=== PATIENT | female | born 1955 | race Caucasian/White ===

== ENCOUNTER 2018-03-19 14:53 | Emergency (ER) | payer BC, OTHER ==
--- NOTE | 2018-03-19 14:57 | Emergency Department Record ---
History of Present Illness - General Stated complaint: UTI Time Seen by Provider: 03/19/18 14:57 Source: Patient, Family Mode of Arrival: Ambulatory Limitations: No limitations - History of Present Illness Initial comments: 62 yo female presents with 4 days of urinary frequency. Mild suprapubic discomfort. No fevers, chills, nausea or vomiting. No diarrhea. Mild intermittent back pain that is gone currently. No rash. No vaginal bleeding or discharge. She tried cranberry juice for without improvement. MD Complaint: Dysuria -: Days(s) (4) Location: Suprapubic Radiation: Suprapubic Severity: Moderate Quality: Aching Consistency: Constant Improves with: None Worsens with: Urination - Related Data Home Medications Medication Instructions Recorded Confirmed Last Taken Diazepam [Valium] 5 mg PO ASDIR 03/19/18 03/19/18 Unknown Previous Rx's Medication Instructions Recorded Nitrofurantoin Monohyd/M-Cryst 100 mg PO BID #14 capsule 03/19/18 [Macrobid 100 mg Capsule] Allergies Allergy/AdvReac Type Severity Reaction Status Date / Time morphine Allergy Intermediate HIVES Verified 03/19/18 14:58 Review of Systems Constitutional: Denies: Chills, Fever, Malaise, Weakness Eyes: Denies: Eye discharge ENT: Denies: Congestion, Throat pain Respiratory: Denies: Cough, Dyspnea, Hemoptysis, Wheezes Cardiovascular: Denies: Chest pain, Syncope Endocrine: Denies: Fatigue Gastrointestinal: Reports: As per HPI, Abdominal pain. Denies: Diarrhea, Nausea , Vomiting Genitourinary: Reports: Dysuria, Frequency. Denies: Abnormal menses, Discharge , Hematuria, Incontinence, Retention Musculoskeletal: Denies: Arthralgia, Back pain, Neck pain Skin: Denies: Bruising, Change in color, Rash Neurological: Denies: Headache, Numbness, Weakness Psychiatric: Denies: Anxiety Hematological/Lymphatic: Denies: Blood Clots, Easy bleeding, Easy bruising Past Medical History - SOCIAL HISTORY Smoking Status: Former smoker - RESPIRATORY Hx Respiratory Disorders: No - CARDIOVASCULAR Hx Cardio Disorders: No - NEURO Hx Neuro Disorders: No - GI Hx GI Disorders: Yes Hx Reflux: Yes Hx Hiatal Hernia: Yes Hx Ulcer: Yes (h pylori) - Hx Genitourinary Disorders: No - ENDOCRINE Hx Endocrine Disorders: No - MUSCULOSKELETAL Hx Musculoskeletal Disorders: No - PSYCH Hx Psych Problems: No - HEMATOLOGY/ONCOLOGY Hx Hematology/Oncology Disorders: No Family Medical History Hx Cancer: Father *Cancer Comment: kidney ca Hx Heart Disease: Father *Heart Comment: father-pacemaker. mother-murmur, neck anurysm Physical Exam - General General Appearance: Alert, Oriented x3, Cooperative, No acute distress Limitations: No limitations - Head Head exam: Normal inspection - Eye Eye exam: Normal appearance. negative: Conjunctival injection - ENT ENT exam: Normal exam, Mucous membranes moist Ear exam: Normal external inspection Nasal Exam: Normal inspection Mouth exam: Normal external inspection - Neck Neck exam: Normal inspection - Respiratory Respiratory exam: Normal lung sounds bilaterally. negative: Respiratory distress - Cardiovascular Cardiovascular Exam: Regular rate, Normal rhythm, Normal heart sounds - GI/Abdominal GI/Abdominal exam: Soft, Tenderness (minimal suprapubic tenderness) - Rectal Rectal exam: Deferred - exam: Deferred - Extremities Extremities exam: Normal inspection, Full ROM, Normal capillary refill. negative: Tenderness - Back Back exam: Denies: CVA tenderness (R), CVA tenderness (L), Paraspinal tenderness , Tenderness - Neurological Neurological exam: Alert, Oriented X3 - Psychiatric Psychiatric exam: Normal affect, Normal mood - Skin Skin exam: Dry, Intact, Normal color, Warm Course - Reevaluation(s) Reevaluation #1: 03/19/18 15:32 The UA is consistent with a UTI Macrobid prescribed Disposition Disposition: Discharge Clinical Impression: Urinary tract infection Disposition: Home, Self-Care Condition: (1) Good Instructions: Urinary Tract Infection in Women (ED) Additional Instructions: Stay well hydrated Start the antibiotics as directed Return or be seen if not improved in the next week A culture will be sent that will result in a week Prescriptions: Nitrofurantoin Monohyd/M-Cryst [Macrobid 100 mg Capsule] 100 mg PO BID #14 capsule Forms: Patient Portal Access Time of Disposition: 15:34 Quality - Quality Measures Quality Measures: N/A - Blood Pressure Screening Does Patient Have Any of the Following: No Blood Pressure Classification: Pre-Hypertensive BP Reading Systolic Measurement: 146 Diastolic Measurement: 81 Screening for High Blood Pressure: < Pre-Hypertensive BP, F/U Documented > [ G8950] Pre-Hypertensive Follow-up Interventions: Referral to alternative/primary care provider.
[2018-03-19 15:21] LABS: URINE APPEARANCE CLEAR; URINE BILIRUBIN NEGATIVE (NEGATIVE); URINE BLOOD SMALL (NEGATIVE); URINE COLOR YELLOW; URINE GLUCOSE (UA) NEGATIVE (NEGATIVE); URINE KETONE NEGATIVE (NEGATIVE); URINE LEUKOCYTE ESTERASE SMALL (NEGATIVE); URINE NITRITE NEGATIVE (NEGATIVE); URINE PROTEIN NEGATIVE (NEGATIVE); URINE UROBILINOGEN 0.2 E.U./dL (0.20 - 1.00)
[2018-03-19 15:30] LABS: URINE BACTERIA FEW; URINE RBC 0 - 2 (NONE SEEN); URINE WBC 21 - 35 (0-2/hpf)
[2018-03-19] MEDS ORDERED: NITROFURANTOIN MONO 100 MG CAPSULE PO ONE (15:34)
== END 2018-03-19 15:46 | disposition home or self-care (01) ==
LOC: ER 14:53
DX: N39.0 Urinary tract infection, site not specified (principal); Z87.891 Personal history of nicotine dependence
CPT/HCPCS: 81001; 99282

== ENCOUNTER 2019-05-02 00:50 | Emergency (ER) | payer OTHER ==
[2019-05-02] MEDS ORDERED: ONDANSETRON HCL IV 4 MG/2 ML VIAL IVP ONE (00:51)
[2019-05-02] MEDS ORDERED: HYOSCYAMINE SULFATE ODT 0.125 MG TAB.SUBL SL ONE (00:56)
--- NOTE | 2019-05-02 00:57 | Emergency Department Record ---
History of Present Illness - General Chief complaint: Nausea, Vomiting, Diarrhea Time Seen by Provider: 05/02/19 00:50 Source: Patient, EMS Mode of Arrival: EMS Limitations: No limitations - History of Present Illness Initial comments: 63 yo female presents to ED for evaluation of nausea, vomiting, and loose stools for the past 4 hours. Patient denies fevers, chills, or abdominal pain symptoms, patient denies recent antibiotic use. Patient called EMS as she reports she was too dehydrated to get off the floor. Patient reports a history of gastritis. Patient denies urinary symptoms as well. MD complaint: Diarrhea, Nausea, Vomiting Onset/Timin -: Hour(s) Description of Diarrhea: Green, Water Associated Abdominal Pain: No Severity: Mild Quality: Cramping Consistency: Constant Improves with: None Worsens with: None Associated Symptoms: Denies other symptoms - Related Data Previous Rx's Medication Instructions Recorded Hyoscyamine Sulfate [Levsin-Sl] 0.25 mg SL Q8H PRN #30 tab.subl 05/02/19 Ondansetron [Zofran Odt] 4 mg PO Q8H PRN #15 tab.rapdis 05/02/19 Allergies Allergy/AdvReac Type Severity Reaction Status Date / Time morphine Allergy Intermediate HIVES Verified 05/02/19 01:44 Review of Systems Constitutional: Denies: Chills, Fever, Malaise, Night sweats Eyes: Denies: Eye discharge, Eye pain ENT: Denies: Congestion, Ear pain, Epistaxis Respiratory: Denies: Cough, Dyspnea Cardiovascular: Denies: Chest pain, Dyspnea on exertion Endocrine: Denies: Fatigue, Heat or cold intolerance Gastrointestinal: Reports: Diarrhea, Nausea, Vomiting. Denies: Constipation Genitourinary: Denies: Incontinence, Retention Musculoskeletal: Denies: Arthralgia, Back pain Skin: Denies: Bruising, Change in color Neurological: Denies: Abnormal gait, Confusion, Headache, Seizure Psychiatric: Denies: Anxiety Hematological/Lymphatic: Denies: Anemia, Blood Clots Past Medical History - SOCIAL HISTORY Smoking Status: Former smoker - RESPIRATORY Hx Respiratory Disorders: No - CARDIOVASCULAR Hx Cardio Disorders: No - NEURO Hx Neuro Disorders: No - GI Hx GI Disorders: Yes Hx Reflux: Yes Hx Hiatal Hernia: Yes Hx Ulcer: Yes (h pylori) - Hx Genitourinary Disorders: No - ENDOCRINE Hx Endocrine Disorders: No - MUSCULOSKELETAL Hx Musculoskeletal Disorders: No - PSYCH Hx Psych Problems: No - HEMATOLOGY/ONCOLOGY Hx Hematology/Oncology Disorders: No Family Medical History Hx Cancer: Father *Cancer Comment: kidney ca Hx Heart Disease: Father *Heart Comment: father-pacemaker. mother-murmur, neck anurysm Physical Exam - General General Appearance: Alert, Oriented x3, Cooperative, Moderate distress, Other Limitations: No limitations - Head Head exam: Atraumatic, Normocephalic, Normal inspection Head exam detail: negative: Abrasion, Contusion, Rdz's sign, General tenderness, Hematoma, Laceration - Eye Eye exam: Normal appearance. negative: Conjunctival injection, Periorbital swelling, Periorbital tenderness, Scleral icterus - ENT Ear exam: negative: Auricular hematoma, Auricular trauma Nasal Exam: negative: Active bleeding, Discharge, Dried blood, Foreign body Mouth exam: negative: Drooling, Laceration, Muffled voice, Tongue elevation - Neck Neck exam: Normal inspection. negative: Meningismus, Tenderness - Respiratory Respiratory exam: Normal lung sounds bilaterally. negative: Rales, Respiratory distress, Rhonchi, Stridor - Cardiovascular Cardiovascular Exam: Regular rate, Normal rhythm, Normal heart sounds - GI/Abdominal GI/Abdominal exam: Soft. negative: Rebound, Rigid, Tenderness - Rectal Rectal exam: Deferred - exam: Deferred - Extremities Extremities exam: Normal inspection. negative: Pedal edema, Tenderness - Back Back exam: Denies: CVA tenderness (R), CVA tenderness (L) - Neurological Neurological exam: Alert, Normal gait, Oriented X3 - Psychiatric Psychiatric exam: Normal affect, Normal mood - Skin Skin exam: Normal color. negative: Abrasion Type of lesion: negative: abrasion Course - Reevaluation(s) Reevaluation #1: 05/02/19 03:16 Laboratory studies were reviewed and appear grossly unremarkable for an acute process except for the following: WBC 12.3 with 24% bands Reevaluation #2: 05/02/19 03:23 Patient was reassessed, reports that she is feeling much better. Abdominal pain/cramping much improved, loose stools are improved as well. Patient reports that she is feeling well enough to be discharged home with medication for nausea and cramping as discussed. Patient appears stable for discharge at this time. Medical Decision Making - Lab Data Result diagrams: 05/02/19 02:26 05/02/19 02:26 Disposition Disposition: Discharge Clinical Impression: Nausea vomiting and diarrhea Disposition: Home, Self-Care Condition: (2) Stable Instructions: Acute Nausea and Vomiting (ED) Additional Instructions: Return to ED if your symptoms worsen or if you have any concerns. Zofran, Levsin as directed. Follow-up with your family doctor in 3-5 days as directed. Prescriptions: Hyoscyamine Sulfate [Levsin-Sl] 0.25 mg SL Q8H PRN #30 tab.subl PRN Reason: Abdominal Pain Ondansetron [Zofran Odt] 4 mg PO Q8H PRN #15 tab.rapdis PRN Reason: Nausea/Vomiting Forms: Patient Portal Access Time of Disposition: 03:24 Quality - Quality Measures Quality Measures: N/A - Blood Pressure Screening Does Patient Have Any of the Following: No Blood Pressure Classification: Pre-Hypertensive BP Reading Systolic Measurement: 124 Diastolic Measurement: 73 Screening for High Blood Pressure: < Pre-Hypertensive BP, F/U Documented > [G8950] Pre-Hypertensive Follow-up Interventions: Referral to alternative/primary care provider.
[2019-05-02] MEDS ORDERED: LOPERAMIDE 2 MG CAPSULE PO ONE (01:00)
[2019-05-02] MEDS ORDERED: 0.9 % SODIUM CHLORIDE 1000ML 2,000 ML IV SCH (01:00)
[2019-05-02 01:55] LABS: ROTOVIRUS NOT DETECTED (NOT DETECT)
[2019-05-02 02:33] LABS: ABSOLUTE NEUTROPHIL COUNT 10.23; HEMATOCRIT 46.2 % (35.0-47.0); HEMOGLOBIN 15.2 gm/dl (11.6-16.0); MEAN CELL VOLUME 89.9 fl (81-97); MEAN CORPUSCULAR HEMOGLOBIN 29.6 pg (27-33); MEAN CORPUSCULAR HGB CONC 32.9 g/dl (32-36); MEAN PLATELET VOLUME 9.4 fl (7.4-10.4); PLATELET COUNT 233 K/uL (130-400); RED BLOOD COUNT 5.14 M/uL (3.80-5.40); RED CELL DISTRIBUTION WIDTH 13.8 % (11.5-14.5); WHITE BLOOD COUNT W/O DIFF 12.3 K/uL (4.2-12.2)
[2019-05-02 02:37] LABS: MOLECULAR C DIFF TOXIN SCREEN NOT DETECTED (NOT DETECT)
[2019-05-02 02:42] LABS: BLOOD UREA NITROGEN 29 mg/dL (8-23); CREATININE 0.8 mg/dL (0.5-0.9); EST GLOMERULAR FILTRATION RATE > 60 mL/min
[2019-05-02 02:43] LABS: LIPASE 66 U/L (13-60); TOTAL PROTEIN 6.7 g/dL (6.6-8.7)
[2019-05-02 02:45] LABS: GLUCOSE,RANDOM 115 mg/dL (74-109)
[2019-05-02 02:48] LABS: ALB/GLOB RATIO 1.6 (1.1-1.8); ALBUMIN 4.1 g/dL (4.0-5.0); ALKALINE PHOSPHATASE 103 U/L (35-104); ALT/SGPT 22 U/L (<33); AST/SGOT 25 U/L (10.0-35.0)
[2019-05-02 02:54] LABS: ANISOCYTOSIS 1+; PLATELET ESTIMATE NORMAL (NORMAL); TOXIC GRANULATION 1+
== END 2019-05-02 04:39 | disposition home or self-care (01) ==
LOC: ER 00:50
DX: R11.2 Nausea with vomiting, unspecified (principal); R19.7 Diarrhea, unspecified; Z87.891 Personal history of nicotine dependence
CPT/HCPCS: 80053; 83690; 85027; 87425; 87493; 89055; 96361; 96374; 99284; J7030